=== PATIENT | male | born 1990 ===

== ENCOUNTER 2018-04-22 19:02 | Emergency (ER) | payer BC, OTHER ==
[2018-04-22 19:38] VITALS: BP 134/86
--- NOTE | 2018-04-22 19:59 | UC ---
Lower Extremity/Ankle HPI - HPI Summary HPI Summary: Patient is a 27-year-old male with right rear foot pain times one and half to 2 days. He denies any trauma. He works on his feet all day. Yesterday he was limping markedly. Today the pain has decreased. He is generally pretty healthy. - History of Current Complaint Chief Complaint: UCLowerExtremity Stated Complaint: FOOT PAIN Time Seen by Provider: 04/22/18 19:37 Hx Obtained From: Patient Onset/Duration: Gradual Onset, Lasting Days Severity Initially: Mild Severity Currently: Moderate Pain Intensity: 0 Pain Scale Used: 0-10 Numeric Aggravating Factor(s): Standing, Ambulation Alleviating Factor(s): Rest, Elevation Able to Bear Weight: Yes - Allergies/Home Medications Allergies/Adverse Reactions: Allergies Allergy/AdvReac Type Severity Reaction Status Date / Time No Known Allergies Allergy Verified 04/22/18 19:29 PMH/Surg Hx/FS Hx/Imm Hx Previously Healthy: Yes - Surgical History Surgical History: None - Family History Known Family History: Positive: Hypertension - Social History Alcohol Use: None Substance Use Type: None Smoking Status (MU): Never Smoked Tobacco Review of Systems Constitutional: Negative Skin: Negative Eyes: Negative ENT: Negative Respiratory: Negative Cardiovascular: Negative Gastrointestinal: Negative Genitourinary: Negative Motor: Negative Neurovascular: Negative Musculoskeletal: Arthralgia Neurological: Negative Psychological: Negative Is Patient Immunocompromised?: No All Other Systems Reviewed And Are Negative: Yes Physical Exam Triage Information Reviewed: Yes Appearance: Well-Appearing, No Pain Distress, Well-Nourished Vital Signs: Initial Vital Signs Temp 98.5 F 04/22/18 19:29 Pulse 88 04/22/18 19:29 Resp 20 04/22/18 19:29 BP 134/86 04/22/18 19:29 Pulse Ox 96 04/22/18 19:29 Vital Signs Reviewed: Yes Eyes: Positive: Conjunctiva Clear ENT: Negative: Hearing grossly normal, Nasal congestion, Nasal drainage, Trismus , Hoarse voice, Uvula midline Neck: Positive: Supple, Nontender, No Lymphadenopathy Respiratory: Positive: Lungs clear, Normal breath sounds, No respiratory distress, No accessory muscle use Cardiovascular: Positive: RRR, No Murmur Abdomen Description: Positive: Nontender, No Organomegaly Musculoskeletal: Positive: ROM Intact, No Edema, Other: - Tender with compression of the calcaneus. Neurological: Positive: Alert, Muscle Tone Normal Psychological Exam: Normal Skin Exam: Normal Diagnostics - Radiology No standard instances Xray Interpretation: No Acute Changes Radiology Interpretation Completed By: ED Physician Lower Extremity Course/Dx - Differential Dx/Diagnosis Provider Diagnoses: overuse injury right foot Discharge - Sign-Out/Discharge Documenting (check all that apply): Patient Departure All imaging exams completed and their final reports reviewed: No - Discharge Plan Condition: Stable Disposition: HOME Patient Education Materials: Foot Sprain (ED) Referrals: Purvi Siddiqui MD [Primary Care Provider] - 7 Days (if not better) Additional Instructions: aleve two twice daily as needed for pain if symptoms persist get rechecked sometimes stress fractures don't show up on the initial xr call tomorrow [facility] for official xray reading - Billing Disposition and Condition Condition: STABLE Disposition: Home
--- NOTE | 2018-04-23 07:41 | RAD ---
Indication: Right foot pain. 3 views of the right foot demonstrates no fracture. No other bone or joint abnormality is identified. IMPRESSION: No fracture of the right foot is noted.
--- NOTE | 2018-04-23 08:44 | UC ---
- Progress Note Progress Note: Patient Name: KYLER PENA Medical Record#: [id number] Ordering Physician: Jerry Guillory MD Acct.#: [id number] : 1990 Age: 27 Sex: M Location: [facility] Exam Date: 04/22/181950 ADM Status: DEP ER Order Information: FOOT RIGHT 3+ VWS Accession Number: [id number] CPT: 81932 Indication: Right foot pain. 3 views of the right foot demonstrates no fracture. No other bone or joint abnormality is identified. IMPRESSION: No fracture of the right foot is noted. <Electronically signed by Lakisha Patel MD in OV> 04/23/18737 Dictated By: Lakisha Patel MD Dictated Date/Time: 04/23/18737 Transcribed Date/Time: 04/23/18737 Copy to: CC:Purvi Siddiqui MD; Jerry Guillory MD Imaging - [facility] Imaging - [facility] [address] [place] [address] ph ([phone]) ph ([phone]) ph ([phone]) This report is only to be considered final once signed by the Provider(s) as displayed in the "<Electronically Signed by >" field (s). Absence of a signature indicates the report is in a draft status and still needs to be finalized. In the event this document was created by someone other than the signing Provider, the individual initiating the document will be listed in the "Entered by:" or "Dictated by:" neal. 1 of 1 Discharge - Sign-Out/Discharge Documenting (check all that apply): Post-Discharge Follow Up All imaging exams completed and their final reports reviewed: Yes - Discharge Plan Condition: Stable Disposition: HOME Patient Education Materials: Foot Sprain (ED) Referrals: Purvi Siddiqui MD [Primary Care Provider] - 7 Days (if not better) Additional Instructions: aleve two twice daily as needed for pain if symptoms persist get rechecked sometimes stress fractures don't show up on the initial xr call tomorrow [facility] for official xray reading - Billing Disposition and Condition Condition: STABLE Disposition: Home
== END 2018-04-22 20:35 | disposition home or self-care (01) ==
LOC: UCEAST 19:02
DX: M70.871 Other soft tissue disorders related to use, overuse and pressure, right ankle and foot (principal); Y93.9 Activity, unspecified
CPT/HCPCS: 99201; G0463